=== PATIENT | female | born 1960 | race Caucasian/White ===

== ENCOUNTER 2020-09-04 22:24 | Inpatient (IN) ==
[2020-09-05] MEDS ORDERED: ZALEPLON 5 MG CAPSULE PO PRN (02:36)
[2020-09-05] MEDS ORDERED: hydrALAZINE 20 MG/1 ML VIAL IV PRN (02:36)
[2020-09-05] MEDS ORDERED: DOCUSATE SODIUM 100 MG CAPSULE PO PRN (02:36)
[2020-09-05] MEDS ORDERED: HYDROmorphone 2 MG/1 ML VIAL IV PRN (02:50)
[2020-09-05] MEDS: SODIUM CHLORIDE 0.9% 1,000 ML IV SCH (03:00)
[2020-09-05] MEDS: CIPROFLOXACIN INJ 400 MG in PREMIX 1 EACH IV SCH ×2 (05:30→18:06)
[2020-09-05] MEDS: metroNIDAZOLE INJ 500 MG in PREMIX 1 EACH IV SCH ×3 (06:30→20:39)
[2020-09-05 07:52] LABS: Basophils % 0.5 % (0.0-0.8); Eosinophils % 0.7 % (0.00-10.9); Hematocrit 44.4 VOL% (35.7-47.0); Hemoglobin 15.1 GM/DL (12.0-16.0); Immature Granulocytes % 0.3 %; Immature Granulocytes Absolute 0.02 #; Lymphocytes # 1.6 10*3/uL (1.4-4.0); Lymphocytes % 27.3 % (21.3-54.2); Mean Corpuscular Volume 85.9 FL (87-102); Mean Platelet Volume 11.1 FL (9.6-12.0); Neutrophils % 56.2 % (38.7-73.9); Platelet Count 185 T/CUMM (130-400); Red Blood Count 5.17 MC/CUMM (3.8-5.5); Red Cell Distribution Width 13.5 % (9.3-17.3)
[2020-09-05 08:19] LABS: Albumin 3.4 G/DL (3.4-5.0); Bilirubin,Total 2.2 MG/DL (0.2-1.0); Calcium 9.2 MG/DL (8.5-10.1); Osmolality,Calculated 273.5 MOS/KG (273-304); Total Protein 7.1 G/DL (6.4-8.3)
[2020-09-05 15:22] LABS: Hepatitis B Core IgM Quant 0.11 Index; Hepatitis B Surface Ag Quant < 0.10 Index; Hepatitis B Surface Ag Result Negative (Negative); Hepatitis C Virus Ab Quant < 0.02 Index; Hepatitis C Virus Ab Result Negative (Negative)
[2020-09-05] MEDS: METOPROLOL TARTRATE 25 MG TABLET PO SCH (22:23)
[2020-09-05] MEDS: ONDANSETRON 4 MG/2 ML VIAL IV PRN (22:42)
[2020-09-06] MEDS: CIPROFLOXACIN INJ 400 MG in PREMIX 1 EACH IV SCH ×2 (02:44→15:00)
[2020-09-06] MEDS: metroNIDAZOLE INJ 500 MG in PREMIX 1 EACH IV SCH ×3 (03:37→22:09)
[2020-09-06 06:12] LABS: Basophils % 0.8 % (0.0-0.8); Eosinophils # 0.1 10*3/uL (0.0-0.87); Eosinophils % 2.2 % (0.00-10.9); Hematocrit 39.3 VOL% (35.7-47.0); Immature Granulocytes % 0.2 %; Immature Granulocytes Absolute 0.01 #; Lymphocytes # 1.3 10*3/uL (1.4-4.0); Lymphocytes % 26.3 % (21.3-54.2); Mean Corpuscular HGB Conc 33.3 GM/DL (32-36); Mean Corpuscular Volume 86.8 FL (87-102); Mean Platelet Volume 11.6 FL (9.6-12.0); Monocytes % 11.4 % (1.7-12.7); Neutrophils % 59.1 % (38.7-73.9); Platelet Count 170 T/CUMM (130-400); Red Blood Count 4.53 MC/CUMM (3.8-5.5); Red Cell Distribution Width 13.9 % (9.3-17.3)
[2020-09-06 06:31] LABS: Albumin 2.7 G/DL (3.4-5.0); Bilirubin,Total 1.6 MG/DL (0.2-1.0); Calcium 8.9 MG/DL (8.5-10.1); Osmolality,Calculated 279.1 MOS/KG (273-304); Total Protein 5.7 G/DL (6.4-8.3)
[2020-09-06 06:39] LABS: Hemoglobin 13.1 GM/DL (12.0-16.0)
[2020-09-06] MEDS ORDERED: LIDOCAINE 1%/EPI INJ 20 ML VIAL ONE (11:33)
[2020-09-06] MEDS ORDERED: BUPIVACAINE MPF 0.25% 30 ML VIAL ONE (11:33)
[2020-09-06] MEDS ORDERED: TISSUE ADHESIVE 1 EACH APPLICATOR TOP ONE (11:33)
[2020-09-06] MEDS ORDERED: ONDANSETRON 4 MG/2 ML VIAL IV PRN (13:51)
[2020-09-06] MEDS ORDERED: MEPERIDINE 25 MG/1 ML VIAL IV PRN (13:51)
[2020-09-06] MEDS ORDERED: PROMETHAZINE INJ 25 MG in SODIUM CHLORIDE 0.9% 50 ML IV PRN (13:51)
[2020-09-06] MEDS ORDERED: HYDROmorphone 2 MG/1 ML VIAL IV PRN (13:51)
[2020-09-06] MEDS ORDERED: diphenhydrAMINE 50 MG/1 ML VIAL IV PRN (13:51)
[2020-09-06] MEDS: METOPROLOL TARTRATE 25 MG TABLET PO SCH ×2 (13:59→22:12)
[2020-09-06] MEDS ORDERED: SUGAMMADEX 200 MG/2 ML VIAL IV ONE (14:10)
[2020-09-06] MEDS ORDERED: ONDANSETRON 4 MG/2 ML VIAL ONE (14:21)
[2020-09-06] MEDS ORDERED: MIDAZOLAM 2 MG/2 ML VIAL ONE (14:21)
[2020-09-06] MEDS ORDERED: SEVOFLURANE 1 UNIT/15 MINUTE INH ONE (14:21)
[2020-09-06] MEDS ORDERED: fentaNYL 100 MCG/2 ML VIAL ONE (14:21)
[2020-09-06] MEDS ORDERED: LIDOCAINE 2% 5 ML VIAL ONE (14:22)
[2020-09-06] MEDS ORDERED: LACTATED RINGERS 1,000 ML IV ONE (14:22)
[2020-09-06] MEDS ORDERED: propofoL 200 MG/20 ML VIAL IV ONE (14:22)
[2020-09-06] MEDS ORDERED: NEOSTIGMINE 10 MG/10 ML VIAL ONE (14:22)
[2020-09-06] MEDS ORDERED: ROCURONIUM 100 MG/10 ML VIAL IV ONE (14:22)
[2020-09-06] MEDS ORDERED: SUCCINYLCHOLINE 200 MG/10 ML VIAL ONE (14:22)
[2020-09-06] MEDS: ONDANSETRON 4 MG/2 ML VIAL IV PRN ×2 (16:29→22:25)
[2020-09-06] MEDS ORDERED: ENOXAPARIN 30 MG/0.3 ML SYRINGE SUBCUT SCH (21:00)
[2020-09-06] MEDS: SODIUM CHLORIDE 0.9% 1,000 ML IV SCH (22:12)
[2020-09-06] MEDS ORDERED: ACETAMINOPHEN 325 MG TABLET ONE (22:23)
[2020-09-06] MEDS: ACETAMINOPHEN 325 MG TABLET PO PRN (22:31)
[2020-09-07] MEDS: CIPROFLOXACIN INJ 400 MG in PREMIX 1 EACH IV SCH (03:03)
[2020-09-07] MEDS: metroNIDAZOLE INJ 500 MG in PREMIX 1 EACH IV SCH (03:16)
[2020-09-07] MEDS: ACETAMINOPHEN 325 MG TABLET PO PRN ×2 (03:17→10:45)
[2020-09-07 05:49] LABS: Basophils % 0.1 % (0.0-0.8); Hematocrit 38.6 VOL% (35.7-47.0); Immature Granulocytes % 0.3 %; Immature Granulocytes Absolute 0.02 #; Mean Corpuscular HGB Conc 33.7 GM/DL (32-36); Mean Corpuscular Volume 85.6 FL (87-102); Mean Platelet Volume 11.7 FL (9.6-12.0); Monocytes % 9.8 % (1.7-12.7); Neutrophils % 75.8 % (38.7-73.9); Platelet Count 190 T/CUMM (130-400); Red Blood Count 4.51 MC/CUMM (3.8-5.5); Red Cell Distribution Width 13.7 % (9.3-17.3); White Blood Count 7.5 T/CUMM (4-12)
[2020-09-07 06:13] LABS: Albumin 2.9 G/DL (3.4-5.0); Bilirubin,Direct 0.21 MG/DL (0.0-0.20); Bilirubin,Indirect 0.4 MG/DL (0.0-1.0); Bilirubin,Total 0.6 MG/DL (0.2-1.0); Calcium 8.9 MG/DL (8.5-10.1); Osmolality,Calculated 273.5 MOS/KG (273-304)
[2020-09-07 06:25] LABS: Albumin 2.7 G/DL (3.4-5.0); Bilirubin,Total 0.6 MG/DL (0.2-1.0); Calcium 8.6 MG/DL (8.5-10.1); Osmolality,Calculated 273.5 MOS/KG (273-304); Total Protein 5.9 G/DL (6.4-8.3)
[2020-09-07] MEDS: ONDANSETRON 4 MG/2 ML VIAL IV PRN (07:15)
[2020-09-07] MEDS: METOPROLOL TARTRATE 25 MG TABLET PO SCH (10:40)
[2020-09-07 11:26] VITALS: BP 142/74
[2020-09-07] MEDS ORDERED: LEVOFLOXACIN 750 MG TABLET PO SCH (12:00)
[2020-09-07] MEDS ORDERED: metroNIDAZOLE 500 MG TABLET PO SCH (14:00)
== END 2020-09-07 12:40 | disposition home or self-care (01) | DRG 419 ==
LOC: N.ED 22:24 → N.EDINP 09-05 01:53 → N.4E 09-05 09:20
PROVIDERS: ADMIT Internal Medicine; ATTEND Internal Medicine
PROC: LAPCHOL (2020-09-06 13:01)